=== PATIENT | female | born 1995 | race Hispanic/Latino ===

== ENCOUNTER 2020-09-05 07:34 | Day surgery (SDC) | payer OTHER ==
[2020-09-05 08:21] VITALS: O2SAT 100
[2020-09-05] MEDS ORDERED: Ringers Lactate 1,000 ML IV ONE (08:22)
[2020-09-05 08:37] LABS: Specific Gravity 1.025 (1.005-1.030)
[2020-09-05] MEDS ORDERED: propofoL 200 MG/20 ML VIAL IV ONE ×2 (09:28→09:42)
[2020-09-05] MEDS ORDERED: LIDOCAINE 1% MPF 5 ML VIAL ONE (09:28)
[2020-09-05 10:20] VITALS: BP 120/72; TEMP 97.2
== END 2020-09-05 10:00 | disposition home or self-care (01) ==
LOC: OR 07:34
PROVIDERS: ATTEND Surgery
PROC: 0DB78ZX Excision of Stomach, Pylorus, Via Natural or Artificial Opening Endoscopic, Diagnostic (ICD-10-PCS; 2020-09-05)
PROC: 0DB68ZX Excision of Stomach, Via Natural or Artificial Opening Endoscopic, Diagnostic (ICD-10-PCS; 2020-09-05)
PROC: 0DB48ZX Excision of Esophagogastric Junction, Via Natural or Artificial Opening Endoscopic, Diagnostic (ICD-10-PCS; 2020-09-05)
PROC: 0DB98ZX Excision of Duodenum, Via Natural or Artificial Opening Endoscopic, Diagnostic (ICD-10-PCS; principal; 2020-09-05 09:00)
DX: K29.50 Unspecified chronic gastritis without bleeding (principal); R11.0 Nausea; R19.7 Diarrhea, unspecified; R14.0 Abdominal distension (gaseous); Z20.822 Contact with and (suspected) exposure to COVID-19
CPT/HCPCS: 43239; 88312 ×2; 81025; 88305; U0002; J2704 ×2; J7120